=== PATIENT | female | born 1970 | race Caucasian/White ===

== ENCOUNTER → 2024-02-03 11:43 | Outpatient (REF) | payer OTHER, SELFPAY | LOC: HWWDC 11:43 | PROVIDERS: ATTENDING PHYSICIAN Obstetrics & Gynecology Gynecology; FAMILY PHYSICIAN Family Medicine | DX: Z12.31 Encounter for screening mammogram for malignant neoplasm of breast (principal) | CPT/HCPCS: 77063; 77067 ==

== ENCOUNTER → 2025-03-10 11:11 | Outpatient (REF) | payer OTHER, SELFPAY | LOC: HWWDC 11:11 | PROVIDERS: ATTENDING PHYSICIAN Obstetrics & Gynecology Gynecology; FAMILY PHYSICIAN Family Medicine | DX: Z12.31 Encounter for screening mammogram for malignant neoplasm of breast (principal) | CPT/HCPCS: 77063; 77067 ==

== ENCOUNTER → 2025-04-30 11:33 | Outpatient (REF) | payer OTHER, SELFPAY | LOC: HWRCS 11:33 | PROVIDERS: ATTENDING PHYSICIAN Family Medicine | DX: R07.89 Other chest pain (principal); Z82.49 Family history of ischemic heart disease and other diseases of the circulatory system | CPT/HCPCS: 93005; 93306 ==

== ENCOUNTER → 2025-06-15 12:46 | Outpatient (REF) | payer OTHER, SELFPAY | LOC: RCS 12:46 | PROVIDERS: ATTENDING PHYSICIAN Internal Medicine Cardiovascular Disease; FAMILY PHYSICIAN Family Medicine | DX: R07.2 Precordial pain (principal) | CPT/HCPCS: 93017; 93350 ==